=== PATIENT | male | born 1950 ===

== ENCOUNTER 2017-02-16 05:41 | Inpatient (IN) | payer OTHER ==
[~2017-02-16] VITALS: Ht 182.9 cm; Wt 113.4 kg
[2017-02-16] VITALS (15 sets, daily range): BP systolic 96–127; BP diastolic 49–70
[~2017-02-16 05:41] MED LIST: AMLODIPINE BESY10 MG ORAL; ATORVASTATIN CA20 MG ORAL; GLIPIZIDE5 MG ORAL; INVOKANA300 MG PO; LEVOTHYROXINE125 MCG ORAL; LISINOPRIL20 MG ORAL; METFORMIN HCL1000 M1 ORAL; PAROXETINE HCL40 MG ORAL
[2017-02-16] MEDS ORDERED: Vancomycin 1gm/D5W 275ml IVPB ONE ×2 (06:00)
[2017-02-16] MEDS ORDERED: Pantoprazole Inj IVP ONE (06:00)
[2017-02-16] MEDS ORDERED: D5 1/2NS 1,000 ML IV SCH (07:15)
[2017-02-16] MEDS ORDERED: Thrombin 5000 units TOPIC ONE (07:17)
--- NOTE | 2017-02-16 07:17 | Anethesia Preoperative Eval ---
Anesthesia Pre-op PMH/ROS General Date of Evaluation: Feb 16, 2017 Anesthesiologist: Andrew ASA Score: ASA 2 Mallampati Score Class I : Soft palate, uvula, fauces, pillars visible Class II: Soft palate, uvula, fauces visible Class III: Soft palate, base of uvula visible Class IV: Only hard plate visible Mallampati Classification: Class III Surgeon: Betty Diagnosis: Lumbar radiculopathy Surgical Procedure: Post lumbar decompression and fusion L4-S1 Anesthesia History: none Family History: no anesthesia problems Allergies: Coded Allergies: No Known Allergies (Unverified , 02/15/17) Medications: see eMAR Past Medical History Cardiovascular: Reports: HTN, other - HLD, Denies: CAD, [place], arrhythmia, valve dz Pulmonary: Denies: COPD, JEANNINE, asthma, other Gastrointestinal/Genitourinary: Denies: CRI, ESRD, GERD, other Neurologic/Psychiatric: Denies: CVA, TIA, dementia, depression/anxiety, other Endocrine: Reports: DM, hypothyroidism, Denies: other, steroids HEENT: Denies: CRAIG (L), CRAIG (R), cataract (L), cataract (R), glaucoma, other Hematology/Immune: Denies: DVT, anemia, bleeding disorder, other Musculoskeletal/Integumentary: Denies: DDD, DJD, OA, RA, edema, other Other: obesity PSxH Narrative: lumbar spine sx Anesthesia Pre-op Phys. Exam Physician Exam Last Vital Signs Date Time Temp Pulse Resp B/P Pulse Ox O2 Delivery O2 Flow Rate FiO2 02/16/17 07:07 97.5 63 20 103/61 97 Room Air Constitutional: NAD Cardiovascular: RRR Respiratory: CTA Airway Exam Mallampati Score: Class III MO: limited ROM: full Teeth: intact Anesthesia Pre-op A/P Labs see chart Studies Pre-op Studies: EKG - sr Risk Assessment & Plan Assessment: ASA II Plan: GA Status Change Before Surgery: No Pre-Antibiotics Drug: Vanco 1g, gentamycin 80mg Given Within 1 Hr of Incision: Yes Time Given: 07:45 SD ESQUIVEL M.D. Feb 16, 2017 07:17
[2017-02-16] MEDS ORDERED: Bacitracin Oint 15gm Tube TOPIC ONE (07:18)
[2017-02-16] MEDS ORDERED: Heparin 5000 units/ml inj ONE (07:18)
[2017-02-16] MEDS ORDERED: Thrombin 5000 units spray kit TOPIC ONE (07:19)
[2017-02-16] MEDS ORDERED: Gelfoam Absorbable 1gm powder pkt TOPIC ONE (07:19)
[2017-02-16] MEDS ORDERED: Bacitracin 50000 Units Vial ONE (07:19)
[2017-02-16] MEDS ORDERED: Bupivacaine w/Epi 0.5% 30ml Vial INJ ONE (07:19)
--- NOTE | 2017-02-16 07:27 | Pre-Procedure Note/Attestation ---
Pre-Procedure Note/Attestation Complete Prior to Procedure Planned Procedure: bilateral Procedure Narrative: Redo lumbar decompression Right L4-5 and L5-S1, Interspinous fusion and posterolateral arthrodesis at L4-5 with allograft, autograft and iliac crest bone marrow aspiration. Attestation I attest that I discussed the nature of the procedure; its benefits; risks and complications; and alternatives (and the risks and benefits of such alternatives ), prior to the procedure, with the patient (or the patient's legal unit support representative). I attest that, if there was a reasonable possibility of needing a blood transfusion, the patient (or the patient's legal unit support representative) was given the [place] Department [employer] Services standardized written summary, pursuant to the Hari Constanza Blood Safety Act ([place] Health and Safety Code # 1645, as amended). I attest that I re-evaluated the patient just prior to the surgery and that there has been no change in the patient's H&P, except as documented below: ODALIS ZEE Feb 16, 2017 07:27
[2017-02-16] MEDS ORDERED: Sterile Water Irrig 1000ml IRRIG ONE (07:30)
[2017-02-16] MEDS ORDERED: fentaNYL 250mcg/5ml ONE (07:30)
[2017-02-16] MEDS ORDERED: NS Irrig 1000ml ONE (07:30)
[2017-02-16] MEDS ORDERED: Dexamethasone 4mg/ml vial ONE (07:30)
[2017-02-16] MEDS ORDERED: Zemuron 50mg/5ml Inj IV ONE (07:30)
[2017-02-16] MEDS ORDERED: Propofol 10mg/ml 100ml btl IV ONE (07:30)
[2017-02-16] MEDS ORDERED: Midazolam 2mg/2ml Inj ONE (07:30)
[2017-02-16] MEDS ORDERED: Lidocaine 1% MPF 10mg/ml 5ml ONE (07:30)
[2017-02-16] MEDS ORDERED: LR 1000ml ONE (07:30)
[2017-02-16] MEDS ORDERED: LR 1000ml 1,000 ML IVLG SCH (08:25)
--- NOTE | 2017-02-16 08:27 | Immediate Post-Op Evaluation ---
Immediate Post-Op Evalulation Immediate Post-Op Evalulation Procedure: Posterior lumbar decompression and fusion L4-S1 Date of Evaluation: Feb 16, 2017 Time of Evaluation: 11:27 IV Fluids: 1.3L Blood Products: 0 Estimated Blood Loss: 150 Urinary Output: 500 Blood Pressure Systolic: 96 Blood Pressure Diastolic: 49 Pulse Rate: 69 Respiratory Rate: 16 O2 Sat by Pulse Oximetry: 96 Temperature (Fahrenheit): 97.1 Pain Score (1-10): 0 Nausea: No Vomiting: No Complications 0 Patient Status: awake, reacts, patent, none Hydration Status: adequate Drug: Vanco 1g and gentamycin 80mg Given Within 1 Hr of Incision: Yes Time Given: 07:45 SD ESQUIVEL M.D. Feb 16, 2017 08:27
[2017-02-16] MEDS ORDERED: Hydromorphone 0.5mg/0.5ml inj IVP PRN (08:30)
[2017-02-16] MEDS ORDERED: DiphenhydrAMINE 50mg/ml Inj IVP PRN (08:30)
[2017-02-16] MEDS ORDERED: Metoclopramide 10mg/2ml Inj IVP PRN ×2 (08:30→12:00)
[2017-02-16] MEDS ORDERED: fentaNYL 100 mcg/2 mL IV PRN (08:30)
--- NOTE | 2017-02-16 11:35 | Brief Operative Note ---
Immediate Post Operative Note Operative Note Chief Complaint: sever low back pain, right leg pain, numbness Pre-op Diagnosis: h/o right L4-5 and L5-S1 lumbar decompression recurrent radiculopathy, severe mechanical axial low back pain disc collapse with foraminal stenosis at L4-5, L5-S1 lateral recess stenosis lack of improvement from conservative care Procedure: Redo Right L4 and L5 lumbar decompression, hemilaminotomy medial facetectomy and foraminotomy Removal of epidural scar with microsurgical technique Left L4 hemilaminotomy medial facetectomy and foraminotomy with central and lateral recess decompression aspiration of bone marrow from the right iliac crest posterolateral arthrodesis L4-5 bilaterally, with allograft, autograft and bone marrow aspirate Lyman of local bone from lamina Intra-operative supervision, use and interpretation of fluoroscopy Interspinous fusion using 12 mm Benefix device Intraoperative neuromonitoring, SSEPs and Dermatomals Post-op Diagnosis: same as pre-op Findings: consistent w/pre-op dx studies Surgeon: Shanique Hernández MD Medical Reception Specialist: Lamberto Pisano MD Anesthesiologist: Dr. Morales Anesthesia: general Specimen: yes - disc and epidural scar Complications: none Fluids: 1.2 l crystalloids Estimated Blood Loss: minimal Drains: none Implant(s) used?: Yes SHANIQUE HERNÁNDEZ Feb 16, 2017 11:35
[2017-02-16] MEDS ORDERED: traMADol 50mg tab ORAL PRN (12:00)
[2017-02-16] MEDS ORDERED: HYDROmorphone 1mg/ml Carpuject SUBQ PRN (12:00)
[2017-02-16] MEDS ORDERED: Acetaminophen 650 MG SUPP RECTAL PRN (12:00)
[2017-02-16] MEDS ORDERED: Milk of Magnesia 30ml Ud ORAL PRN (12:00)
--- NOTE | 2017-02-16 12:01 | General Progress Note ---
Progress Note Progress Note Neurosurgery POST op S/ Comfortable. No leg pain VS: Last 24 Hour Vital Signs Date Time Temp Pulse Resp B/P Pulse Ox O2 Delivery O2 Flow Rate FiO2 02/16/17 11:25 69 16 96 02/16/17 07:07 97.5 63 20 103/61 97 Room Air Arousable Moves al extremities well sensation normal doing well observe Internal med consult ODALIS ZEE Feb 16, 2017 12:01
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
--- NOTE | 2017-02-16 14:59 | Diagnostic Imaging Report ---
Indication: PAIN Technique: Intraoperative imaging Comparison: None Findings: Initial image demonstrates surgical tools posterior to are presumably the L4-5 disc and the superior aspect of the L5 vertebral body. Subsequent images demonstrate a metallic device between the L4 and L5 spinous processes. Impression: Intraoperative imaging, as described
[2017-02-16] MEDS: Norco 7.5mg/325mg tab ORAL PRN (15:44)
[2017-02-16] MEDS ORDERED: NS w/KCl 20mEq 1,000 ML IV SCH (16:00)
[2017-02-16 16:08] LABS: CREATININE 1.3 mg/dL (0.7-1.2); GLOMERULAR FILTRATION RATE 55.1 mL/min (>60); POTASSIUM 5.6 mEQ/L (3.4-4.9)
[2017-02-16] MEDS ORDERED: metFORMIN 500mg tab ORAL SCH (18:00)
--- NOTE | 2017-02-16 20:02 | General Progress Note ---
Assessment/Plan Status Narrative s/p spien surgery perio[perative natibiotic prophyalxios given pt ot dvt prophyalxis paincontrol hist oryof diabtes accucheck sliding scale resume eds willfollow Subjective Date patient seen: Feb 16, 2017 Time patient seen: 20:01 Constitutional: Reports: no symptoms HEENT: Reports: no symptoms Cardiovascular: Reports: no symptoms Respiratory: Reports: no symptoms Gastrointestinal/Abdominal: Reports: no symptoms Allergies: Coded Allergies: No Known Allergies (Unverified , 02/15/17) Objective Last 24 Hour Vital Signs Date Time Temp Pulse Resp B/P Pulse Ox O2 Delivery O2 Flow Rate FiO2 02/16/17 14:45 97.0 57 16 106/60 96 Nasal Cannula 2.0 02/16/17 14:15 97.2 67 17 97/67 94 Nasal Cannula 2.0 02/16/17 13:20 96.4 60 17 98/57 96 Nasal Cannula 2.0 02/16/17 13:10 96.6 59 16 100/63 94 Room Air 02/16/17 12:55 97.8 64 18 100/61 96 Nasal Cannula 3.0 02/16/17 12:40 60 15 97/61 99 Nasal Cannula 3.0 02/16/17 12:25 64 20 99/57 98 Nasal Cannula 3.0 02/16/17 12:05 62 19 98/57 98 Nasal Cannula 3.0 02/16/17 11:50 67 19 104/57 98 Simple Mask 6.0 02/16/17 11:40 65 18 99/54 98 Simple Mask 6.0 02/16/17 11:32 68 15 106/57 98 Simple Mask 6.0 02/16/17 11:27 73 15 110/57 98 Simple Mask 6.0 02/16/17 11:25 69 16 96 02/16/17 11:22 97.1 68 12 96/49 98 Simple Mask 6.0 02/16/17 07:07 97.5 63 20 103/61 97 Room Air Laboratory Tests 02/16/17 15:40: Sodium Level 139, Potassium Level 5.6H, Chloride Level 103, Carbon Dioxide Level 22, Anion Gap 14, Blood Urea Nitrogen 28H, Creatinine 1.3H, Estimat Glomerular Filtration Rate 55.1, Glucose Level 179H, Calcium Level 9.0 Height (Feet): 6 Height (Inches): 0.00 Weight (Pounds): 250 General Appearance: WD/WN EENT: PERRL/EOMI Neck: non-tender Cardiovascular: normal rate, regular rhythm, no JVD Respiratory/Chest: lungs clear Abdomen: soft EVENS KHANNA Feb 16, 2017 20:02
[2017-02-16] MEDS: Docusate 100mg cap ORAL SCH (20:51)
[2017-02-16] MEDS: Pericolace tab ORAL SCH (20:51)
[2017-02-16] MEDS ORDERED: NovoLOG Insulin Flexpen SUBQ SCH ×2 (21:00)
[2017-02-16] MEDS ORDERED: Atorvastatin 20mg tab ORAL SCH (21:00)
[2017-02-16] MEDS: D5 1/2NS 1,000 ML IV SCH (21:20)
[2017-02-16] MEDS: Vancomycin 1 GM in D5W 275 ML IVPB SCH (21:21)
[2017-02-17] VITALS: BP 107/57
[2017-02-17 04:00] VITALS: BP 100/57
[2017-02-17] MEDS ORDERED: GlipiZIDE 5mg tab ORAL SCH (06:30)
[2017-02-17] MEDS ORDERED: Levothyroxine 125mcg tab ORAL SCH (06:30)
[2017-02-17] MEDS: NovoLOG Insulin Flexpen SUBQ SCH ×3 (06:33→16:37)
[2017-02-17] MEDS: D5 1/2NS 1,000 ML IV SCH ×2 (06:34→17:00)
[2017-02-17 06:35] LABS: EOSINOPHILS % (AUTO) 0.3 % (0.0-3.0); LYMPHOCYTES % (AUTO) 16.1 % (20.0-45.0); MEAN CORPUSCULAR HEMOGLOBIN 32.8 PG (27.0-31.0); MEAN CORPUSCULAR VOLUME 94 FL (80-99); MEAN PLATELET VOLUME 7.6 FL (6.5-10.1); MONOCYTES % (AUTO) 6.8 % (1.0-10.0); NEUTROPHILS % (AUTO) 75.7 % (45.0-75.0); PLATELET COUNT 266 K/UL (150-450); RED BLOOD COUNT 3.58 M/UL (4.70-6.10); RED CELL DISTRIBUTION WIDTH 13.6 % (11.6-14.8); WHITE BLOOD COUNT 12.3 K/UL (4.8-10.8)
[2017-02-17 06:56] LABS: CALCIUM 8.7 mg/dL (8.6-10.2); CREATININE 1.3 mg/dL (0.7-1.2); GLOMERULAR FILTRATION RATE 55.1 mL/min (>60); POTASSIUM 4.8 mEQ/L (3.4-4.9)
[2017-02-17] MEDS: Norco 7.5mg/325mg tab ORAL PRN ×3 (07:08→18:21)
[2017-02-17] MEDS: Vancomycin 1 GM in D5W 275 ML IVPB SCH (08:16)
[2017-02-17] MEDS: Docusate 100mg cap ORAL SCH ×2 (08:52→17:20)
[2017-02-17] MEDS: Pericolace tab ORAL SCH ×2 (08:52→17:20)
[2017-02-17] MEDS ORDERED: Lisinopril 20mg tab ORAL SCH (09:00)
[2017-02-17] MEDS ORDERED: PARoxetine 20mg tab ORAL SCH (09:00)
[2017-02-17 09:12] VITALS: BP 120/66
[2017-02-17] MEDS: metFORMIN 500mg tab ORAL SCH ×2 (12:09→17:19)
--- NOTE | 2017-02-17 13:52 | General Progress Note ---
Progress Note Progress Note Neurosurgery S/ Leg pain almost completely resolved. Ambulated several times today and with PT. Voiding. Pain under control O/ Vs: Last 24 Hour Vital Signs Date Time Temp Pulse Resp B/P Pulse Ox O2 Delivery O2 Flow Rate FiO2 02/17/17 09:12 97.0 72 18 120/66 97 Room Air 02/17/17 08:53 120/66 02/17/17 08:53 72 120/66 02/17/17 08:07 96.4 02/17/17 04:00 96.4 66 18 100/57 97 Room Air 02/17/17 00:00 97.0 59 18 107/57 95 Room Air 02/16/17 20:00 97.3 56 18 127/70 98 Nasal Cannula 2.0 02/16/17 14:45 97.0 57 16 106/60 96 Nasal Cannula 2.0 02/16/17 14:15 97.2 67 17 97/67 94 Nasal Cannula 2.0 Alert and oriented. Smiling. In good spirits Incision is dry. Lumbar brace on Strength normal and symmetrical Bilaterally in the uppers and lowers. Sensation at baseline, mild decrease in R L5 dermatome Labs: Laboratory Tests Test 02/16/17 15:40 02/17/17 06:05 Sodium Level 139 mEQ/L (135-145) 139 mEQ/L (135-145) Potassium Level 5.6 mEQ/L (3.4-4.9) H 4.8 mEQ/L (3.4-4.9) Chloride Level 103 mEQ/L (98-107) 104 mEQ/L (98-107) Carbon Dioxide Level 22 mEQ/L (20-30) 25 mEQ/L (20-30) Anion Gap 14 (5-15) 10 (5-15) Blood Urea Nitrogen 28 mg/dL (7-23) H 23 mg/dL (7-23) Creatinine 1.3 mg/dL (0.7-1.2) H 1.3 mg/dL (0.7-1.2) H Estimat Glomerular Filtration Rate 55.1 mL/min (>60) 55.1 mL/min (>60) Glucose Level 179 mg/dL (74-106) H 160 mg/dL (74-106) H Calcium Level 9.0 mg/dL (8.6-10.2) 8.7 mg/dL (8.6-10.2) White Blood Count 12.3 K/UL (4.8-10.8) H Red Blood Count 3.58 M/UL (4.70-6.10) L Hemoglobin 11.7 G/DL (14.2-18.0) L Hematocrit 33.5 % (42.0-52.0) L Mean Corpuscular Volume 94 FL (80-99) Mean Corpuscular Hemoglobin 32.8 PG (27.0-31.0) H Mean Corpuscular Hemoglobin Concent 35.0 G/DL (32.0-36.0) Red Cell Distribution Width 13.6 % (11.6-14.8) Platelet Count 266 K/UL (150-450) Mean Platelet Volume 7.6 FL (6.5-10.1) Neutrophils (%) (Auto) 75.7 % (45.0-75.0) H Lymphocytes (%) (Auto) 16.1 % (20.0-45.0) L Monocytes (%) (Auto) 6.8 % (1.0-10.0) Eosinophils (%) (Auto) 0.3 % (0.0-3.0) Basophils (%) (Auto) 1.0 % (0.0-2.0) Hemoglobin A1c 6.0 % (< 6.0) doing well Internal medicine F/u appreciated Ambulate D/c planning d/w pt and nursing ODALIS ZEE Feb 17, 2017 13:52
[2017-02-17 14:07] VITALS: BP 114/61
[2017-02-17 16:30] VITALS: BP 117/59
[2017-02-17] MEDS ORDERED: NORCO 10-325 T1 EACH ORAL (18:41)
[2017-02-17] MEDS ORDERED: SOMA350 MG PO (18:41)
--- NOTE | 2017-02-17 18:42 | Discharge Summary ---
Discharge Summary Discharge Summary Discharge Summary DATE OF ADMISSION: 02/16/2017 DATE OF DISCHARGE: 02/17/2017 REASON FOR HOSPITALIZATION: lumbar spine surgery DATE OF OPERATION: 02/16/2017 PREOPERATIVE DIAGNOSES: 1. Intractable severe mechanical axial back pain, right lower extremity radiculopathy. 2. History of lumbar decompressive surgery, right L4-L5 and L5-S1 level. 3. Recurrent back pain and radiculopathy with neurogenic claudication. 4. Evidence of disc height collapse L4-5 level with disc protrusion and foraminal stenosis. 5. Right L5-S1 lateral recess stenosis. 6. Lack of improvement from conservative measures. POSTOPERATIVE DIAGNOSES: 1. Intractable severe mechanical axial back pain, right lower extremity radiculopathy. 2. History of lumbar decompressive surgery, right L4-L5 and L5-S1 level. 3. Recurrent back pain and radiculopathy with neurogenic claudication. 4. Evidence of disc height collapse L4-5 level with disc protrusion and foraminal stenosis. 5. Right L5-S1 lateral recess stenosis. 6. Lack of improvement from conservative measures. PROCEDURES: 1. Redo right L4 hemilaminotomy, medial facetectomy, and foraminotomy with central and lateral recess decompression. 2. Redo right L5 hemilaminectomy, medial facetectomy, and foraminotomy with lateral recess and central decompression. 3. Removal of epidural scar with microsurgical technique from right L4-L5 and L5-S1 epidural space. 4. Left L4 hemilaminotomy, medial facetectomy, and foraminotomy with central and lateral recess decompression and ligamentectomy. 5. Aspiration of bone marrow from right iliac crest. 6. [place] of local bone from lamina for grafting. 7. Interspinous fusion using 12 millimeter BeneFIX device L4-5 level. 8. Posterolateral arthrodesis using allograft, autograft, and bone marrow aspirate at L4-5 bilaterally. 9. Intraoperative neuromonitoring use of somatosensory evoked potential and dermatomal monitoring. 10. Intraoperative use interpretation and supervision of fluoroscopy for localization of spine and instrumentation. 11. Plastic surgical closure of 10 centimeter lumbar wound. 12. Application of epidural fat graft, L4-5 level. 13. Modifier 22 will be used to denote the degree of difficulty for the approach and depth of the surgical corridor, and surgery through scar . 14. Internal neurolysis of L5 roots bilaterally. SURGEON: Shanique Watson M.D. TRAFFIC POLICE OFFICER SURGEON: Lamberto Pisano M.D. ANESTHESIOLOGIST: Dr. Morales. ANESTHESIA TYPE: General endotracheal anesthesia. EBL: Minimal. HOSPITAL COURSE: S/P SPINE SURGERY WENT TO [facility] MONITORED TRANSFERED TO [facility] AND DID WELL GOING [facility]. CONDITION IN THE HOSPITAL:The patient tolerated the surgery without complications. DISCHARGE CONDITION: The patient was stable at discharge. DISCHARGE MEDICATIONS: no change in his diabetic managment no asa norco 10/325 q6 prn pain soma tid prn spasm POSTOPERATIVE ORDERS: understands post spine lumbar surgery precaution No bending, No lifting, POSTOPERATIVE FOLLOW UP: The patient will be followed in dr watson office 2 weeks EVENS KHANNA Feb 17, 2017 18:42
--- NOTE | 2017-02-18 03:45 | Discharge Summary ---
DATE OF ADMISSION: 02/16/2017 DATE OF DISCHARGE: 02/17/2017 DISCHARGE DIAGNOSES: 1. Status post redo lumbar decompressive surgery, L4-L5 and L5-S1 level. 2. Interspinous fusion at L4-L5. 3. Posterolateral arthrodesis at L4-L5 level. HISTORY OF PRESENT ILLNESS: Please refer to chart for detailed History and Physical. HOSPITAL COURSE: The patient was admitted on 02/16/2017, underwent uneventful posterior redo lumbar decompressive surgery, interspinous fusion, and posterolateral arthrodesis. He has done well postoperatively. His right leg pain is significantly improved. He is walking with improving overall gait. He is being discharged home with appropriate discharge instructions. DISPOSITION: Home. DISCHARGE INSTRUCTIONS: The patient and his family are instructed regarding wound care. In case of fever, chills, drainage from the incision, the patient or family members were asked to call Dr. Hernández or go to the nearest emergency room. DIET: Vincentian diabetic diet. DISCHARGE MEDICATIONS: Medications include [place] and home medications except for Ancef. FOLLOWUP: Follow up in two weeks with Dr. Hernández. Consultation included Physical Therapy and Internal Medicine. COMPLICATIONS: None. Shanique Hernández M.D. DR: Sierra JOB#: [id number] CC:
== END 2017-02-17 20:19 | disposition home or self-care (01) | DRG 460 ==
LOC: SDSOVERFLO 05:41 → 3E 15:12
PROC: 0SB20ZZ Excision of Lumbar Vertebral Disc, Open Approach (ICD-10-PCS; principal; 2017-02-16 07:30)
PROC: 0SG0071 Fusion of Lumbar Vertebral Joint with Autologous Tissue Substitute, Posterior Approach, Posterior Column, Open Approach (ICD-10-PCS; principal; 2017-02-16 07:30)
PROC: 07DR3ZZ Extraction of Iliac Bone Marrow, Percutaneous Approach (ICD-10-PCS; principal; 2017-02-16 07:30)
PROC: 4A11X4G Monitoring of Peripheral Nervous Electrical Activity, Intraoperative, External Approach (ICD-10-PCS; principal; 2017-02-16 07:30)
DX: M51.16 Intervertebral disc disorders with radiculopathy, lumbar region (principal); M48.06 Spinal stenosis, lumbar region; I10 Essential (primary) hypertension; E11.9 Type 2 diabetes mellitus without complications; E03.9 Hypothyroidism, unspecified
CPT/HCPCS: 36415; 72020; 76001; 80048; 82962; 83036; 85025; 86850; 86900; 86901; 87081; C9399; J1815; J2250; J2405